=== PATIENT | male | born 1975 | race Caucasian/White ===

== ENCOUNTER 2020-02-16 22:13 | Emergency (ER) | payer OTHER, SELFPAY ==
[2020-02-16 22:18] VITALS: BP 173/82; PULSE 86; RESP 18; TEMP 37.1; O2SAT 96; BMI 34.4
== END 2020-02-17 00:25 | disposition left against medical advice (07) ==
LOC: ER 22:44
PROVIDERS: Family Provider Nurse Practitioner Family
DX: Z53.21 Procedure and treatment not carried out due to patient leaving prior to being seen by health care provider (principal)
CPT/HCPCS: 99281

== ENCOUNTER 2020-02-25 12:58 | Outpatient (CLI) | payer OTHER, SELFPAY ==
--- NOTE | 2020-02-25 13:05 | XR_ITS ---
WS: [id number] EXAM: LEFT HAND: 3 VIEWS DATE OF EXAMINATION: 02/25/2020, 1314 hours COMPARISON: None. HISTORY: Patient is 44 years old with hand lacerated with a box knife between the first and second fingers. C omplaining of pain. FINDINGS: Bone density is normal in appearance. Slight changes of arthritis radial carpal row. Presumably old u nunited ulnar styloid fracture versus ununited apophysis. Arthritis at the triscaphe articulation, sc apholunate articulation and first carpometacarpal articulation. Interphalangeal joints of the fingers are unremarkable. The site of laceration injury is not appreciated. No radiopaque foreign body is se en. No bony destruction to suggest osteomyelitis demonstrated. XR/XR hand LT min 3V* [id number] IMPRESSION: Site of laceration injury not appreciated. No acute bony abnormality.
== END 2020-02-25 12:59 | disposition home or self-care (01) ==
LOC: RAD 13:02
PROVIDERS: PCP Registered Nurse; Visit Provider Registered Nurse
DX: S61.412A Laceration without foreign body of left hand, initial encounter (principal); X58.XXXA Exposure to other specified factors, initial encounter; I10 Essential (primary) hypertension
CPT/HCPCS: 73130; 80053; 80061; 83721; 85025

== ENCOUNTER 2020-07-06 14:28 | Emergency (ER) | payer OTHER, SELFPAY ==
[2020-07-06 14:38] VITALS: BP 157/99; PULSE 77; RESP 14; TEMP 36.5; O2SAT 100; BMI 33.5
--- NOTE | 2020-07-06 14:39 | XRR_ITS ---
PROCEDURE INFORMATION: Exam: XR Right Hand Exam date and time: 07/06/2020 2:41 PM Age: 44 years old Clinical indication: Injury or trauma; Other: Smashed top of hand; Work related; Swelling (edema); Right; Additional info: Crush injury TECHNIQUE: Imaging protocol: XR Right hand. Views: 3 or more views. COMPARISON: No relevant prior studies available. FINDINGS: Bones/joints: Negative for acute bony abnormality. Soft tissues: Soft tissue edema is seen in the dorsal aspect of the hand XR/XR hand RT min 3V* [id number] IMPRESSION: 1. No acute bone abnormality. 2. Soft tissue edema dorsal aspect of the hand
--- NOTE | 2020-07-06 14:52 | ED_ITS ---
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 Hand got caught between a roller he is able to pull his hand back out. There was no power going to the mail at that time but the rollers are very heavy and have a thin area that pulled a board through he has swelling to his left hand. MD Complaint: extremity pain and extremity swelling Onset (ago): hour(s) Pain Consistency: constant Location: left and upper extremity Severity scale (1-10): 4 Quality: aching Radiation: none Relieving factors: immobilization Exacerbating factors: range of motion Associated symptoms: Reports no associated symptoms; Deny chest pain, fever(s) or rash Review of Systems Const: Denies: fever(s), chills or body aches Eyes: Denies: change in vision or blurry vision ENMT: Denies: throat pain or nasal congestion Card: Denies: chest pain or dyspnea on exertion Resp: Denies: dyspnea, productive cough or non-productive cough GI: Denies: abdominal pain, nausea or vomiting : Denies: difficulty urinating Musc: Reports: extremity pain (Left hand pain between the fourth and fifth finger metacarpals) Skin/Breast: Denies: rash Neuro: Denies: headache(s) Psych: Denies: anxiety or depression Vito/Lymph: Denies: easy bruising PFSH ED PFSH: Surgical History Hx of shoulder surgery Social History Smoking and tobacco status: never smoked Physical Exam Const: COMMON NORMALS: no acute distress, average body habitus and patient oriented x3 HENMT: COMMON NORMALS: normocephalic HEAD & SCALP: normal to inspection and normocephalic FACE & SINUS: normal facial exam Eye: COMMON NORMALS: conjunctivae normal GENERAL EYE: appearance normal, both eyes and all related structures CONJUNCTIVA: Yes conjunctivae normal Neck/C-Spine: COMMON NORMALS: no JVD Chest: COMMONS NORMALS: normal inspection of the chest Resp: COMMON NORMALS: normal respiratory effort and clear to auscultation bilaterally AUSCULTATION: clear to auscultation bilaterally Cardio: COMMON NORMALS: no JVD, regular rate and regular rhythm RATE: regular rate RHYTHM: regular rhythm GI: COMMON NORMALS: Normal to inspection, nondistended, normoactive bowel sounds present Extremity: COMMON NORMALS: full ROM LEFT UPPER EXTREMITY: Yes hand & digits (Mild swelling between fourth and fifth metacarpal. Tender to the touch. H) Neuro: COMMON NORMALS: patient oriented x3 Course Vital Signs: Vital signs: Vital Signs Temperature 97.7 F 07/06/20 14:38 Pulse Rate 77 07/06/20 14:38 Respiratory Rate 14 07/06/20 14:38 Blood Pressure 157/99 07/06/20 14:38 Pulse Oximetry 100 07/06/20 14:38 MDM - Extremity (Nontraumatic) MDM Narrative: Medical decision making narrative: X-ray appears to show fract ure of the fifth phalange E proximal with some slight displacement near the distal aspect of that phalanges.P read will reread x-ray. Patient does have swelling dorsum of the hand Imaging Data^: Xray Ortho: My impression: Left fifth proximal phalange E fracture near MIP Discharge Plan Discharge Patient Disposition: Home Clinical Impression: Finger fracture, left Qualifiers: Encounter type: initial encounter Finger: little finger Fracture type: closed Phalanx: proximal Fracture alignment: displaced Qualified Code(s): S62.617A - Displaced fracture of proximal phalanx of left little finger, initial encounter for closed fracture Condition: Stable Prescriptions: New hydrocodone-acetaminophen 5-325 mg tablet 1 tab PO TID PRN (Reason: pain) Qty: 10 RF: 0 No Action loratadine [Claritin] 10 mg tablet 10 mg PO QDAY RF: 0 sulfamethoxazole-trimethoprim [Bactrim DS] 800-160 mg tablet 1 tab PO BID 10 Days Qty: 20 RF: 0 rosuvastatin 10 mg tablet 10 mg PO DAILY Qty: 90 RF: 0 lisinopril 10 mg tablet 10 mg PO DAILY Qty: 90 RF: 0 Discharge Orders: Discharge ED (Routine); Ordered 07/06/20 Ordered By: Cecil Guillen Referrals: Tish López FNP [Primary Care Provider] - Discharge Diet: Usual diet Discharge Activity: Limit activity as instructed Patient Instructions: Finger Fracture (ED) Activity Restrictions/Additional Instructions: Follow-up with medical provider as directed. Take medications as prescribed. Return to the ER or your medical provider if condition worsens. Please read and understand discharge instructions. If any questions ask please. Wear splint till seen by work comp follow-up doctor. Stand Alone Forms: Work/School Release Coding Level of Care Code ED Inclusion Specialist for [facility] Fwd Exam Comprehensive
--- NOTE | 2020-07-07 10:45 | DCPLANNER ---
Addendum entered by Estefania Nassar 07/08/20 16:07: Sarah from the ortho clinic called correctional case records supervisor stating that the clinic was unable to reach patient to schedule follow up appointment. biofuels engineering manager called [phone], unable to reach patient. Original Note: biofuels engineering manager had message to schedule a follow up appointment for patient with ortho. biofuels engineering manager called the ortho clinic, spoke with Sarah, gave clinic patients information. biofuels engineering manager was told that patients information would be printed and reviewed. Clinic will call patient with appointment information.
== END 2020-07-06 15:47 | disposition home or self-care (01) ==
PROVIDERS: Emergency Provider Nurse Practitioner Family; PCP Registered Nurse
DX: S62.617A Displaced fracture of proximal phalanx of left little finger, initial encounter for closed fracture (principal); W31.9XXA Contact with unspecified machinery, initial encounter
CPT/HCPCS: 12345; 73130; 99281; 99282

== ENCOUNTER → 2021-03-04 09:42 | Outpatient (BNVA) | payer OTHER, SELFPAY | PROVIDERS: PCP Registered Nurse; Visit Provider Registered Nurse | DX: R05 Cough (principal); J01.40 Acute pansinusitis, unspecified; Z20.822 Contact with and (suspected) exposure to COVID-19 | CPT/HCPCS: 87635 ==

== ENCOUNTER → 2021-06-10 09:32 | Outpatient (BNVA) | payer OTHER, SELFPAY | PROVIDERS: PCP Registered Nurse; Visit Provider Registered Nurse | DX: M25.50 Pain in unspecified joint (principal); I10 Essential (primary) hypertension; E78.5 Hyperlipidemia, unspecified; E66.9 Obesity, unspecified | CPT/HCPCS: 80053; 80061; 81000; 85025; 86140 ==

== ENCOUNTER 2022-10-15 08:46 | Outpatient (CLI) | payer OTHER, SELFPAY ==
[2022-10-15 09:38] LABS: Alanine Aminotransferase 58 U/L (0-41); Albumin Level 4.4 g/dL (3.5-5.2); Alkaline Phosphatase 71 U/L (40-130); Anion Gap 14.4 (5-19); Aspartate Amino Transferase 35 U/L (0-40); Blood Urea Nitrogen 13 mg/dL (6-20); Calcium 8.8 mg/dL (8.5-10.5); Carbon Dioxide 26 mmol/L (22-29); Chloride 105 mmol/L (98-107); Chol HDL Ratio 3.71 mg/dL (1.0-5.00); Cholesterol 126 mg/dL (0-200); Globulin 2.4 g/dL (1.3-4.6); Glomerular Filtration Rate 91.3 mL/min (90-130); Glucose 158 mg/dL (65-115); HDL Cholesterol 34 mg/dL (60-100); LDL Cholesterol Calculated 26 mg/dL (50-129); LDL HDL Ratio 0.76 RATIO (0.00-3.22); Osmolality Calculated 295 mOsm/kg (285-295); Potassium 4.4 mmol/L (3.5-5.1); Sodium 141 mmol/L (136-145); Total Bilirubin 0.3 mg/dL (0.15-1.2); Total Protein 6.8 g/dL (6.6-8.7); Triglycerides 330 mg/dL (0-150)
[2022-10-15 22:37] LABS: Estmated Average Glucose 108; Hemoglobin A1C 5.4 % (4.0-6.0)
== END 2022-10-15 08:47 | disposition home or self-care (01) ==
LOC: LAB 08:54
PROVIDERS: Nurse Practitioner Family; PCP Registered Nurse; Visit Provider Registered Nurse
DX: I10 Essential (primary) hypertension (principal); E78.5 Hyperlipidemia, unspecified
CPT/HCPCS: 36415; 80053; 80061; 83036

== ENCOUNTER 2022-10-15 16:44 | Outpatient (CLI) | payer OTHER, SELFPAY ==
[2022-10-15 23:11] LABS: Estmated Average Glucose 108; Hemoglobin A1C 5.4 % (4.0-6.0)
== END 2022-10-15 16:45 | disposition home or self-care (01) ==
LOC: LAB 16:48
PROVIDERS: PCP Registered Nurse; Visit Provider Nurse Practitioner Family
DX: R73.09 Other abnormal glucose (principal)
CPT/HCPCS: 83036

== ENCOUNTER → 2023-08-05 10:18 | Outpatient (BNVA) | payer OTHER, SELFPAY | PROVIDERS: PCP Registered Nurse; Visit Provider Registered Nurse | DX: I10 Essential (primary) hypertension (principal); E78.5 Hyperlipidemia, unspecified; G47.33 Obstructive sleep apnea (adult) (pediatric); E66.9 Obesity, unspecified; Z71.3 Dietary counseling and surveillance | CPT/HCPCS: 80053; 80061; 83721; 85025 ==

== ENCOUNTER 2023-08-20 15:00 | Outpatient (CLI) | payer OTHER, SELFPAY ==
[2023-08-20 15:29] LABS: Estmated Average Glucose 103; Hemoglobin A1C 5.2 % (4.0-6.0)
== END 2023-08-20 15:01 | disposition home or self-care (01) ==
PROVIDERS: PCP Registered Nurse; Visit Provider Registered Nurse
DX: R73.9 Hyperglycemia, unspecified (principal)
CPT/HCPCS: 83036

== ENCOUNTER → 2023-12-19 09:04 | Outpatient (BNVA) | payer OTHER, SELFPAY | PROVIDERS: PCP Registered Nurse; Visit Provider Nurse Practitioner Family | DX: Z02.4 Encounter for examination for driving license (principal); R73.9 Hyperglycemia, unspecified | CPT/HCPCS: 82962 ==

== ENCOUNTER → 2023-12-21 15:22 | Outpatient (BNVA) | payer OTHER, SELFPAY | PROVIDERS: PCP Registered Nurse; Visit Provider Nurse Practitioner Family | DX: R81 Glycosuria (principal) | CPT/HCPCS: 80053; 80061; 81000; 82962; 83036; 85025 ==

== ENCOUNTER 2023-12-23 12:33 | Outpatient (CLI) | payer OTHER, SELFPAY ==
--- NOTE | 2023-12-23 12:40 | XRR_ITS ---
PROCEDURE INFORMATION: Exam: XR Chest Exam date and time: 12/23/2023 12:44 PM Age: 48 years old Clinical indication: Dyspnea and shortness of breath; Additional info: R06.00 - dyspnea, unspecified TECHNIQUE: Imaging protocol: Radiologic exam of the chest. Views: 2 views. COMPARISON: No relevant prior studies available. FINDINGS: Lungs: No consolidation. Pleural spaces: No sizable pleural effusion or pneumothorax. Heart/Mediastinum: No cardiomegaly. Bones/joints: Unremarkable. XR/XR chest 2V* [id number] IMPRESSION: No acute intrathoracic findings.
== END 2023-12-23 12:34 | disposition home or self-care (01) ==
LOC: RAD 12:36
PROVIDERS: PCP Registered Nurse; Visit Provider Nurse Practitioner Family
DX: R06.00 Dyspnea, unspecified (principal)
CPT/HCPCS: 71046

== ENCOUNTER → 2024-07-24 08:22 | Outpatient (BNVA) | payer OTHER, SELFPAY | PROVIDERS: PCP Registered Nurse; Visit Provider Nurse Practitioner Family | DX: I10 Essential (primary) hypertension (principal); E78.5 Hyperlipidemia, unspecified; R53.83 Other fatigue | CPT/HCPCS: 80053; 80061; 84439; 84443; 85025 ==

== ENCOUNTER 2024-07-25 16:33 | Outpatient (CLI) | payer OTHER, SELFPAY ==
--- NOTE | 2024-07-25 16:38 | XRR_ITS ---
PROCEDURE INFORMATION: Exam: XR Chest Exam date and time: 07/25/2024 4:41 PM Age: 48 years old Clinical indication: Dyspnea and shortness of breath; Additional info: R06.09 - other forms of dyspnea TECHNIQUE: Imaging protocol: Radiologic exam of the chest. Views: 2 views. COMPARISON: CR XR chest 2V* [id number] 12/23/2023 12:44 PM FINDINGS: Lungs: Unremarkable. No consolidation. Pleural spaces: Unremarkable. No pleural effusion. No pneumothorax. Heart/Mediastinum: Unremarkable. No cardiomegaly. Bones/joints: Unremarkable. XR/XR chest 2V* [id number] IMPRESSION: No acute findings.
== END 2024-07-25 16:34 | disposition home or self-care (01) ==
LOC: RAD 16:35
PROVIDERS: PCP Registered Nurse; Visit Provider Nurse Practitioner Family
DX: R06.09 Other forms of dyspnea (principal)
CPT/HCPCS: 71046

== ENCOUNTER → 2025-03-22 07:23 | Outpatient (BNVA) | payer OTHER, SELFPAY | PROVIDERS: PCP Nurse Practitioner Family; Visit Provider Nurse Practitioner Family | DX: R53.83 Other fatigue (principal); E78.2 Mixed hyperlipidemia; I10 Essential (primary) hypertension | CPT/HCPCS: 80053; 80061; 84403; 85025 ==

== ENCOUNTER → 2025-05-14 07:35 | Outpatient (BNVA) | payer OTHER, SELFPAY | PROVIDERS: PCP Nurse Practitioner Family; Visit Provider Nurse Practitioner Family | DX: N40.0 Benign prostatic hyperplasia without lower urinary tract symptoms (principal); R35.0 Frequency of micturition | CPT/HCPCS: 81000; G0103 ==